=== PATIENT | female | born 1985 | race Caucasian/White ===

== ENCOUNTER 2017-01-22 11:16 | Emergency (ER) | payer OTHER ==
[2017-01-22 14:16] VITALS: BP 116/69
--- NOTE | 2017-01-22 14:52 | UC ---
Skin Complaint HPI - HPI Summary HPI Summary: Started getting pain in R upper thigh/groin about 6 days ago. Was taking care of daughter in hospital, so couldn't come in sooner. Eventually the skin got very red & swollen and drained a large amount of pus about 3 days ago. Since then the skin has turned purple and started peeling. No new redness or swelling , no fever. - History of Current Complaint Chief Complaint: UCSkin Time Seen by Provider: 01/22/17 14:25 Stated Complaint: SKIN COMPLAINT Hx Obtained From: Patient Hx Last Menstrual Period: years ?: No Onset/Duration: Gradual Onset, Lasting Days Timing: Constant Onset Severity: Moderate Current Severity: Mild Location: Discrete Character: Swelling, Redness, Raised, Painful Aggravating Factor(s): Clothing Associated Signs & Symptoms: Positive: Drainage. Negative: Fever, Chills - Allergy/Home Medications Allergies/Adverse Reactions: Allergies Allergy/AdvReac Type Severity Reaction Status Date / Time No Known Allergies Allergy Verified 01/22/17 14:16 Review of Systems Constitutional: Negative Skin: Other - redness, swelling, drainage Eyes: Negative ENT: Negative Respiratory: Negative Cardiovascular: Negative Gastrointestinal: Negative Genitourinary: Negative Motor: Negative Neurovascular: Negative Musculoskeletal: Negative Neurological: Negative Psychological: Negative Is Patient Immunocompromised?: No All Other Systems Reviewed And Are Negative: Yes PMH/Surg Hx/FS Hx/Imm Hx Previously Healthy: Yes - Surgical History Surgical History: Yes Surgery Procedure, Year, and Place: ECTOPIC , right breast benign lesion removed 2016. CHOLECYSTECTOMY. LEFT HAND TENDON REPAIR SX-2013 - Family History Known Family History: Positive: Hypertension - Social History Alcohol Use: Rare Substance Use Type: None Smoking Status (MU): Light Every Day Tobacco Smoker Type: Cigarettes Amount Used/How Often: 1 PK PER WK Length of Time of Smoking/Using Tobacco: 10 yrs Have You Smoked in the Last Year: Yes Physical Exam Triage Information Reviewed: Yes Appearance: Well-Appearing, No Pain Distress, Well-Nourished Vital Signs: Initial Vital Signs Temp 98.7 F 01/22/17 14:08 Pulse 77 01/22/17 14:08 Resp 18 01/22/17 14:08 BP 116/69 01/22/17 14:08 Vital Signs Reviewed: Yes Eye Exam: Normal Eyes: Positive: Conjunctiva Clear ENT Exam: Normal ENT: Positive: Normal ENT inspection, Hearing grossly normal, Pharynx normal, TMs normal Neck exam: Normal Respiratory Exam: Normal Respiratory: Positive: Chest non-tender, Lungs clear, Normal breath sounds, No respiratory distress, No accessory muscle use Cardiovascular Exam: Normal Cardiovascular: Positive: RRR, No Murmur Musculoskeletal Exam: Normal Neurological Exam: Normal Neurological: Positive: Alert Psychological Exam: Normal Skin Exam: Other - hyperpigmentation over 12cm round area on upper groin with open area in the center, no fluctuance or active drainage. Nontender (pt reports this area was very tender few days ago). Course/Dx - Diagnoses Provider Diagnoses: R groin skin abscess, healing Discharge - Discharge Plan Condition: Stable Disposition: HOME Patient Education Materials: Abscess (ED) Referrals: No Primary Care Phys,NOPCP [Primary Care Provider] - Additional Instructions: As we discussed, your skin abscess appears to be healing appropriately. As it has already drained and started healing, there is no need for oral antibiotics at the moment. If you have increasing pain or increasing redness, please call or come back and we can reassess.
== END 2017-01-22 14:54 | disposition home or self-care (01) ==
LOC: UCCORT 11:16
DX: L02.214 Cutaneous abscess of groin (principal); Z90.49 Acquired absence of other specified parts of digestive tract; F17.210 Nicotine dependence, cigarettes, uncomplicated
CPT/HCPCS: 99211; G0463